=== PATIENT | male | born 1945 | race Caucasian/White ===

== ENCOUNTER → 2020-10-13 10:07 | Outpatient (BNVA) | payer MEDICARE, OTHER, SELFPAY | PROVIDERS: PCP Internal Medicine; Visit Provider Urology | DX: R35.1 Nocturia (principal); R39.14 Feeling of incomplete bladder emptying; N52.9 Male erectile dysfunction, unspecified; N40.1 Benign prostatic hyperplasia with lower urinary tract symptoms | CPT/HCPCS: 51798; 99212 ==

== ENCOUNTER → 2020-11-07 11:06 | Outpatient (BNVA) | payer MEDICARE, OTHER, SELFPAY | PROVIDERS: PCP Internal Medicine; Visit Provider Urology | DX: R35.1 Nocturia (principal); R39.14 Feeling of incomplete bladder emptying; R39.12 Poor urinary stream; N52.9 Male erectile dysfunction, unspecified | CPT/HCPCS: 52000; 99212 ==

== ENCOUNTER → 2021-02-27 11:09 | Outpatient (BNVA) | payer MEDICARE, OTHER, SELFPAY | PROVIDERS: PCP Internal Medicine; Visit Provider Urology | DX: N40.1 Benign prostatic hyperplasia with lower urinary tract symptoms (principal); N52.9 Male erectile dysfunction, unspecified; R39.12 Poor urinary stream | CPT/HCPCS: 51798; 99212 ==

== ENCOUNTER 2021-04-09 09:42 | Day surgery (SDC) | payer MEDICARE, OTHER, SELFPAY ==
--- NOTE | 2021-04-06 12:15 | P.CONAN_ITS ---
Documented by User: Karina Siddiqi NP 04/06/21 12:21 HPI - Anesthesia Eval Consult details Narrative: 76yo M for Laser Ablation Prostate w/Green Light Cardiac cleared PMFSH Active Problems Active Problems: All Active Problems (Updated 11/07/20 @ 11:54 by El Hernandez MD) Weak urinary stream (Acute) Nocturia (Acute) Feeling of incomplete bladder emptying (Acute) Erectile dysfunction (Acute) Benign prostatic hyperplasia with lower urinary tract symptoms (Acute) Past Medical History Medical History (Updated 04/09/21 @ 09:51 by Susan Roland RN) Benign prostatic hyperplasia with lower urinary tract symptoms CAD (coronary artery disease) Erectile dysfunction Feeling of incomplete bladder emptying HTN (hypertension) Hyperlipidemia Nocturia ANEUDY (obstructive sleep apnea) Weak urinary stream Surgical History Surgical History (Updated 04/09/21 @ 09:52 by Susan Roland RN) History of surgery Hx of Achilles tendon repair Hx of arthroscopy of left knee Hx of colonoscopy Social History Social History Patient Tobacco Use Status: Never used Tobacco Use of substances other than those prescribed or required for medical reasons: No Are you DNR?: No Advance Directives: No Advance Directives Information Provided: Yes Meds Allergies Allergy/AdvReac Type Severity Reaction Status Date / Time No Known Allergies Allergy Verified 04/09/21 09:50 Home Medications Medication Instructions Recorded Confirmed Last Taken Type atorvastatin 80 mg tablet 80 mg PO DAILY 10/13/20 Unknown History hydrochlorothiazide 12.5 mg capsule 12.5 mg PO DAILY 10/13/20 Unknown History isosorbide mononitrate 30 mg 30 mg PO QPM 10/13/20 Unknown History tablet,extended release 24 hr losartan 50 mg tablet 50 mg PO DAILY 10/13/20 Unknown History aspirin 81 mg tablet 81 mg PO BEDTIME 04/09/21 04/09/21 Unknown History omeprazole 20 mg capsule,delayed 20 mg PO DAILY PRN 04/09/21 04/09/21 Unknown History release Exam Exam Date and Time: April 06, 2021 1215 Pertinent Lab Results Pertinent Lab Results: CBC and BMP WNL (outside facility) Narrative Narrative: Per cardiac clearance note 03/2021: EKG: SB Stress ECHO 05/2019: no evidence of ishemia at high work load; LVEF 60-65%, no RWMA, Trace MR Assessment and Plan Assessment Anesthesia Assessment: Chart Reviewed Documented by User: Romi Coleman MD 04/09/21 10:37 [facility] Past Medical History Medical History (Updated 04/09/21 @ 09:51 by Susan Roland RN) Benign prostatic hyperplasia with lower urinary tract symptoms CAD (coronary artery disease) Erectile dysfunction Feeling of incomplete bladder emptying HTN (hypertension) Hyperlipidemia Nocturia ANEUDY (obstructive sleep apnea) Weak urinary stream Family History Family history of problems with anesthesia: No Surgical History Surgical History (Updated 04/09/21 @ 09:52 by Susan Roland RN) History of surgery Hx of Achilles tendon repair Hx of arthroscopy of left knee Hx of colonoscopy History of Problems with Anesthesia: No Social History Social History Patient Tobacco Use Status: Never used Tobacco Use of substances other than those prescribed or required for medical reasons: No Are you DNR?: No Advance Directives: No Advance Directives Information Provided: Yes Meds Allergies Allergy/AdvReac Type Severity Reaction Status Date / Time No Known Allergies Allergy Verified 04/09/21 09:50 Home Medications Medication Instructions Recorded Confirmed Last Taken Type atorvastatin 80 mg tablet 80 mg PO DAILY 10/13/20 Unknown History hydrochlorothiazide 12.5 mg capsule 12.5 mg PO DAILY 10/13/20 Unknown History isosorbide mononitrate 30 mg 30 mg PO QPM 10/13/20 Unknown History tablet,extended release 24 hr losartan 50 mg tablet 50 mg PO DAILY 10/13/20 Unknown History aspirin 81 mg tablet 81 mg PO BEDTIME 04/09/21 04/09/21 Unknown History omeprazole 20 mg capsule,delayed 20 mg PO DAILY PRN 04/09/21 04/09/21 Unknown History release Exam Airway Mallampati Class: II TM Dist: >3cm Neck ROM: Full Heart: rrr Lungs: cta Assessment and Plan Assessment Anesthesia Assessment: Anesthesia Plan Discussed and Chart Reviewed Final Anesthetic Review Family History of Problems with Anesthesia: No History of Problems with Anesthesia: No NPO: Yes ASA Class: III Final Preanesthetic Review: No Changes in Pt Med Stat, Meds/Allgs Chart Reviewed and Consent Obtained/Reviewed Patient Risk: Intermediate Procedure Risk: Intermediate Anesthetic Plan Anesthetic Plan: GA Disposition: Standard PACU
[2021-04-09] VITALS (8 sets, daily range): BP systolic 110–160; BP diastolic 49–77; PULSE 48–54; RESP 16–17; TEMP 36.2–36.5; O2SAT 96–99; BMI 28.7
[2021-04-09] MEDS: Lactated Ringers 1,000 ML 100 ML IVCONT (10:18)
--- NOTE | 2021-04-09 11:39 | MHC.SHP ---
Pre-Procedural Eval Section A Date of Service: 04/09/21 The patient is an INPATIENT: No Changes since office visit: Yes Cold of Flu in the past 2 weeks, Yes New Medical Problems, Yes Changes in Medication and Yes Patient answered all questions The History & Physical has been completed within 30 days and I have reviewed it.: Yes Section B Chief Complaint: BPH Relevant Family History (Specify if Yes): No Relevant Social History: None Present Medications: see Short Stay Collaborative assessment Medical History: No relevant PMH History of Previous Operations: Relevant previous surgery/procedure and date(s) Allergies: Allergies Allergy/AdvReac Type Severity Reaction Status Date / Time No Known Allergies Allergy Verified 04/09/21 09:50 Review of Systems Sugical H&P ROS: Negative: Constitution, Cardiovascular, Respiratory, Neurological, Psychiatric, Hem-Onc, Allergic/Immunologic, Gastrointestinal, Genitourinary, Musculoskeletal, Integumentary, Endocrine and Eyes/Ears/Nose/Throat Exam Surgical H&P Exam: Normal: HEENT, Normal: Heart, Normal: Lungs, Normal: Extremities, Normal: Abdomen, Normal: Skin and Normal: Neurological Plan Diagnosis/Plan: Unchanged (greenlight laser prostatectomy) I have reviewed the history and physical and performed a pertinent physical examination on my patient. No changes have occurred unless specified.
--- NOTE | 2021-04-09 12:38 | W.PM.OPN ---
Operative Note Operative Note Date of Service: 04/09/21 Narrative: PreOperative Diagnosis: Bladder outlet obstruction Post Operative Diagnosis: Bladder outlet obstruction Procedure: GreenLight laser ablation of the prostate Surgeon: Dr El Hernandez Anesthesia: General Indications for procedure: History of bladder outlet obstruction. Treated with alpha-sommer and other medications. Still with symptoms. On cystoscopy in office has tight bladder neck. Recommendation for prostate procedure with laser enucleation of prostate. It has been discussed. Focus was placed on development of retrograde examination which is a normal part of this procedure. Procedure: After informed consent was verified the patient was brought to the operating room and placed in a supine position. Anesthesia was administered per protocol. Patient was placed in modified dorsal lithotomy position and prepped and draped in a sterile fashion. Safety pause time-out was confirmed. Antibiotics have been given. Twenty-four Indonesian laser cystoscope was inserted per urethra. No abnormalities found the anterior posterior urethra. The bladder was filled on both ureteric orifices were seen in normal position away from our area of interest. The bladder itself did have some areas which had glomerulation suggestive of an IC type picture may be contributing to urgency and frequency based on the relatively small prostate at the time of examination a decision was made to proceed with prostate incision with median lobe ablation and minimal lateral lobe work Using a GreenLight laser settings of 80 w incisions were made at the 5 and 7 o'clock position. They were taken down and then laterally on each side. They were brought from the bladder neck down to the level of the veru. In this situation the bladder neck to veru distance was relatively short. defined the lateral aspects of the median lobe area. The median lobe was ablated and intervening tissue between the 2 incisions were was removed. At the focus of these incisions and removal of the median lobe there stones within the prostate consistent with a small prostate and a close surgical capsule. When this was completed debris and pieces of prostate removed from the bladder. Both ureteric orifices were reviewed again in shown to be patent in away from any areas of energy damage. The apical area was reviewed in any stray ooze was controlled. A 22 Indonesian 30 cc balloon Harding catheter was placed over stylet into the bladder. Clear efflux was obtained. 30 cc was placed in the balloon and gentle traction was placed. A snap was used to hold tension once the patient will be moved and transported. Once transportation its finish this novel be removed. A belladonna and opiate suppository was placed for postprocedure pain management. He tolerated procedure well was extubated in the operating and transferred in a stable condition to the recovery area. Total power 8900 kilojoules, lase time 7 minutes. Pathology: Prostate tissue Drains: Harding catheter
[2021-04-09] MEDS: Acetaminophen 325 MG TABLET 650 MG PO (12:57)
== END 2021-04-09 14:42 | disposition home or self-care (01) ==
PROVIDERS: PCP Internal Medicine; Visit Provider Urology
PROC: (CPT 52648; principal; 2021-04-09 11:30)
DX: N40.1 Benign prostatic hyperplasia with lower urinary tract symptoms (principal); R39.14 Feeling of incomplete bladder emptying; N13.8 Other obstructive and reflux uropathy; R39.12 Poor urinary stream; R35.1 Nocturia; N52.9 Male erectile dysfunction, unspecified; I10 Essential (primary) hypertension; E78.5 Hyperlipidemia, unspecified
CPT/HCPCS: 52649; J1956; J2405; J3010

== ENCOUNTER → 2021-04-11 15:01 | Outpatient (BNVA) | payer MEDICARE, OTHER, SELFPAY | PROVIDERS: PCP Internal Medicine; Visit Provider Urology | DX: R39.14 Feeling of incomplete bladder emptying (principal) | CPT/HCPCS: 51700; 51798 ==

== ENCOUNTER → 2021-05-24 08:38 | Outpatient (BNVA) | payer MEDICARE, OTHER, SELFPAY | PROVIDERS: PCP Internal Medicine; Visit Provider Urology | DX: Z48.816 Encounter for surgical aftercare following surgery on the genitourinary system (principal); N30.10 Interstitial cystitis (chronic) without hematuria | CPT/HCPCS: 99212 ==

== ENCOUNTER → 2021-12-04 08:35 | Outpatient (BNVA) | payer MEDICARE, OTHER, SELFPAY | PROVIDERS: PCP Internal Medicine; Visit Provider Urology | DX: N30.10 Interstitial cystitis (chronic) without hematuria (principal); N40.1 Benign prostatic hyperplasia with lower urinary tract symptoms; R39.15 Urgency of urination; R39.12 Poor urinary stream | CPT/HCPCS: 51798; 99212 ==

== ENCOUNTER 2022-12-06 08:35 | Outpatient (AMB) | payer MEDICARE, OTHER, SELFPAY ==
--- NOTE | 2022-12-06 08:40 | A.OFFVIS_ITS ---
Intake Intake Visit Reasons: 1Y PVR Intake Note: Patient is present for Follow Up PVR Urology Med: Doxazosin, Solifenacin, Antibiotic Allergy:none Blood Thinner: Aspirin [facility]acy: [facility] PVR: 50ML Allergies No Known Allergies Allergy (Verified 12/06/22 08:41) Medication List - Last Reconciled 12/06/22 by El Hernandez MD aspirin 81 mg PO BEDTIME atorvastatin 80 mg PO DAILY doxazosin 4 mg PO BEDTIME 90 days hydrochlorothiazide 12.5 mg PO DAILY hydrochlorothiazide 12.5 mg PO DAILY isosorbide mononitrate ER 30 mg PO QPM losartan 50 mg PO DAILY omeprazole 20 mg PO DAILY PRN solifenacin 5 mg PO DAILY 90 days sulfamethoxazole-trimethoprim 400-80 mg (Bactrim) 1 tab PO DAILY tramadol 50 mg PO Q6H PRN HPI HPI Comments History of Present Illness Details Tra Felix is a very pleasant male. He is a patient of Dr Segundo. He is seen for the following urologic conditions. - LUTS - male interstitial cystitis Prior cystoscopy with glomerulation in bladder consistent with early male IC type picture PVR today 50 cc Nocturia 1-2 Good control during day Continues to respond current medications Lower Urinary Tract Symptoms: Current visit is for further evaluation of, lower urinary tract symptoms, predominate obstructive symptoms. Current treatment includes medication, alpha sommer, 5-AR - doxazosin and solifenacin Prostate Symptom Score 10/19 , Moderate (9-19), Bother 2. Symptoms include 10/19 , incomplete emptying, weak stream, and are progressing. Prior Prostate Score unknown. Cystoscopy - 11/22 median bar, 04/24 prostate procedure GreenLight - glomerulation Prostate volume 30-50gm. Testing at next visit will include PVR PFSH Medical History Benign prostatic hyperplasia with lower urinary tract symptoms CAD (coronary artery disease) Erectile dysfunction Feeling of incomplete bladder emptying HTN (hypertension) Hyperlipidemia Nocturia ANEUDY (obstructive sleep apnea) Weak urinary stream Surgical History History of surgery Hx of Achilles tendon repair Hx of arthroscopy of left knee Hx of colonoscopy Social History Patient Tobacco Use Status: Never used Tobacco Review of Systems Const Denies chills and Denies fever(s) Card Reports no additional complaints and Denies syncope Resp Denies cough GI Denies abdominal pain and Denies heartburn Reports as per HPI and Denies change in libido Neuro Denies syncope Psych Denies change in libido Endo Denies change in libido Physical Exam Const General: cooperative, healthy appearing, comfortable and no acute distress Orientation/consciousness: patient oriented x3 HEENT Face and sinus: Yes normal facial exam Mouth: moist mucous membranes Neck Neck: Yes normal visual inspection, Yes full ROM and Yes trachea midline Chest Chest palpation & inspection: normal inspection of the chest Resp Effort & Inspection: normal respiratory effort, able to speak in complete sentences and no respiratory distress GI Inspection: Yes normal to inspection Back/Spine/Pelvis Cervical Spine: normal cervical lordosis Thoracic/Lumbar Spine: thoracic and lumbar spine normal to inspection Skin General skin exam: no rashes or lesions noted Neuro General: patient oriented x3, gait normal, tone normal and moves all extremities Extrem General: Yes normal to inspection and Yes capillary refill normal Office Procedures Post Void Residual Post Residual Void Post Void Residual (PVR): 50 [id number] Void Residual by ultrasound Results AMB Urinalysis, Automated UA Leukoctes 0 Ebony/uL Last Edit by JAKY Arshad on 12/06/22 08:49 UA Nitrite Negative Last Edit by JAKY Arshad on 12/06/22 08:49 UA Urobilinogen 0.2 mg/dL Last Edit by JAKY Arshad on 12/06/22 08:4 9 UA Protein 0 mg/dL Last Edit by JAKY Arshad on 12/06/22 08:49 UA pH 6.0 Last Edit by JAKY Arshad on 12/06/22 08:49 UA Blood 0 Albert/uL Last Edit by JAKY Arshad on 12/06/22 08:49 UA Specific [place] 1.015 Last Edit by JAKY Arshad on 12/06/22 08: 49 UA Ketone Negative Last Edit by JAKY Arshad on 12/06/22 08:49 UA Bilirubin 0 mg/dL Last Edit by JAKY Arshad on 12/06/22 08:49 UA Glucose 0 mg/dL Last Edit by JAKY Arshad on 12/06/22 08:49 Results Reviewed Results Reviewed: Laboratory Last Values Urine pH (Auto) 6.0 12/06/22 08:42 Specific [place] (Auto) 1.015 12/06/22 08:42 Urine Protein (Auto) 0 mg/dL 12/06/22 08:42 Glucose (UA)(Auto) 0 mg/dL 12/06/22 08:42 Urine Ketones (Auto) Negative 12/06/22 08:42 Urine Blood (Auto) 0 Albert/uL 12/06/22 08:42 Urine Nitrite (Auto) Negative 12/06/22 08:42 Urine Bilirubin (Auto) 0 mg/dL 12/06/22 08:42 Urine Urobilinogen (Auto) 0.2 mg/dL 12/06/22 08:42 Leukocyte Esterase (Auto) 0 Ebony/uL 12/06/22 08:42 Assessment & Plan Assessment & Plan (1) Interstitial cystitis: Code(s): N30.10 - Interstitial cystitis (chronic) without hematuria (2) Urinary urgency: Code(s): R39.15 - Urgency of urination (3) Nocturia: Code(s): R35.1 - Nocturia Plan 12 month follow-up Orders: Orders AMB Urinalysis Automated Today Z13.9 - Encounter for screening, unspecified AMB Post Void Residual by ultrasound Today N40.1 - Benign prostatic hyperplasia with lower urinary tract symptoms Medications: Refilled solifenacin 5 mg PO DAILY 90 tabs 3RF 90 days R39.15 - Urgency of urination doxazosin 4 mg PO BEDTIME 90 tabs 3RF 90 days Patient Instructions: Imaging studies, laboratory and physical exam results were discussed and reviewed in detail. No major barriers to patient understanding were identified. An opportunity to ask questions regarding the treatment plan was provided. All questions were answered. The patient expressed understanding and agreement with the above treatment plan. The patient is aware they should contact our office by phone for worsening of their current condition or the appearance of new urologic symptoms. Compliance is encouraged with any medications and followup testing that is ordered. It is a privilege to participate in the urologic care of your patient. If you have any questions or concerns regarding treatment for the above conditions, or other urologic issues, please do not hesitate to contact me. The office telephone contact is [phone]. This note is constructed using voice recognition software. While every effort has been made to ensure accuracy medical case manager errors may have been included. Yours sincerely, Dr El Hernandez MD, [facility] - Urology Providers of Expert, Compassionate Care for the Genitourinary System Coding Level of Care Code Est Pt Level 4 (20208) Diagnoses Interstitial cystitis N30.10 Urinary urgency R39.15 Nocturia R35.1 CPT Codes Post Residual Void - PVR CPT Code: 44385-Fgvh Void Residual by ultrasound ([id number])
== END 2022-12-06 09:21 | disposition home or self-care (01) ==
PROVIDERS: Visit Provider Urology
DX: N30.10 Interstitial cystitis (chronic) without hematuria (principal); R39.15 Urgency of urination; R35.1 Nocturia
CPT/HCPCS: 99214

== ENCOUNTER → 2022-12-06 08:35 | Outpatient (BNVA) | payer MEDICARE, OTHER, SELFPAY | PROVIDERS: Visit Provider Urology | DX: N30.10 Interstitial cystitis (chronic) without hematuria (principal); R39.15 Urgency of urination; R35.1 Nocturia | CPT/HCPCS: 51798; 99212 ==

== ENCOUNTER 2024-01-01 10:09 | Outpatient (AMB) | payer MEDICARE, OTHER, SELFPAY ==
--- NOTE | 2024-01-01 10:46 | MHC.OFFVIS ---
Intake Visit Reasons: 1Y PVR Intake Note: Patient is Present for PVR Urology Med: Doxazosin, Vesicare Antibiotic Allergy: None Blood Thinner: Aspirin Last PVR: 50 Todays PVR: 20ml Patient states his PCP D/c doxazosin due to side effects Still currently on Vesicare [employer] Career Manager Required: No Accompanied by: Self / Same As Patient Allergies No Known Allergies Allergy (Verified 01/01/24 10:51) HPI Comments Details: Tra Felix is a very pleasant male. He is a patient of Dr Segundo. He is seen for the following urologic conditions. - LUTS - male interstitial cystitis Yearly follow-up Stopped doxazosin secondary to dizziness Has noticed weakness of stream with bladder instability Trial of alfuzosin Had been using omeprazole on demand for GI reflux Suggest trial of famotidine - famotidine also has positive impact on interstitial cystitis bladder Prior cystoscopy with glomerulation in bladder consistent with early male IC type picture Lower Urinary Tract Symptoms: Current visit is for further evaluation of, lower urinary tract symptoms, predominate obstructive symptoms. Current treatment includes medication, alpha sommer, 5-AR - doxazosin and solifenacin Prostate Symptom Score 10/19 , Moderate (9-19), Bother 2. Symptoms include 10/19 , incomplete emptying, weak stream, and are progressing. Prior Prostate Score unknown. Cystoscopy - 11/22 median bar, 04/24 prostate procedure GreenLight - glomerulation Prostate volume 30-50gm. Testing at next visit will include PVR PFSH Medical History ANEUDY (obstructive sleep apnea) CAD (coronary artery disease) Erectile dysfunction HTN (hypertension) Hyperlipidemia Weak urinary stream Nocturia Benign prostatic hyperplasia with lower urinary tract symptoms Feeling of incomplete bladder emptying Surgical History Hx of arthroscopy of left knee Hx of Achilles tendon repair Hx of colonoscopy History of surgery Social History Patient Tobacco Use Status: Never used Tobacco Review of Systems Const Denies chills and Denies fever(s) Card Reports no additional complaints and Denies syncope Resp Denies cough GI Denies abdominal pain and Denies heartburn Reports as per HPI and Denies change in libido Neuro Denies syncope Psych Denies change in libido Endo Denies change in libido Physical Exam Const General: cooperative, healthy appearing, comfortable and no acute distress Orientation/consciousness: patient oriented x3 HEENT Face and sinus: Yes normal facial exam Mouth: moist mucous membranes Neck Neck: Yes normal visual inspection, Yes full ROM and Yes trachea midline Chest Chest palpation & inspection: normal inspection of the chest Resp Effort & Inspection: normal respiratory effort, able to speak in complete sentences and no respiratory distress GI Inspection: Yes normal to inspection Back/Spine/Pelvis Cervical Spine: normal cervical lordosis Thoracic/Lumbar Spine: thoracic and lumbar spine normal to inspection Skin General skin exam: no rashes or lesions noted Neuro General: patient oriented x3, gait normal, tone normal and moves all extremities Extrem General: Yes normal to inspection and Yes capillary refill normal Office Procedures Post Void Residual Post Residual Void Post Void Residual (PVR): 20 [id number] Void Residual by ultrasound Assessment & Plan Assessment & Plan (1) Interstitial cystitis: Code(s): N30.10 - Interstitial cystitis (chronic) without hematuria Category: Medical (2) Urinary urgency: Code(s): R39.15 - Urgency of urination Category: Medical Plan Two month follow-up tele Orders: Orders AMB Post Void Residual by ultrasound Today R39.15 - Urgency of urination Medications: New famotidine 40 mg PO ONCE 30 days PRN 30 tabs 0RF GI Reflux N30.10 - Interstitial cystitis (chronic) without hematuria alfuzosin ER Take before bedtime 10 mg PO BEDTIME 30 days 30 tabs 1RF N30.10 - Interstitial cystitis (chronic) without hematuria, N32.0 - Bladder-neck obstruction, N40.1 - Benign prostatic hyperplasia with lower urinary tract symptoms, R33.9 - Retention of urine, unspecified, R35.1 - Nocturia, R39.12 - Poor urinary stream Refilled solifenacin 5 mg PO DAILY 90 days 90 tabs 3RF R39.15 - Urgency of urination Discontinued doxazosin Discontinued Reason: Patient Completed Course 4 mg PO BEDTIME 90 days 90 tabs 3RF Patient Instructions: Imaging studies, laboratory and physical exam results were discussed and reviewed in detail. No major barriers to patient understanding were identified. An opportunity to ask questions regarding the treatment plan was provided. All questions were answered. The patient expressed understanding and agreement with the above treatment plan. The patient is aware they should contact our office by phone for worsening of their current condition or the appearance of new urologic symptoms. Compliance is encouraged with any medications and followup testing that is ordered. It is a privilege to participate in the urologic care of your patient. If you have any questions or concerns regarding treatment for the above conditions, or other urologic issues, please do not hesitate to contact me. The office telephone contact is [phone]. This note is constructed using voice recognition software. While every effort has been made to ensure accuracy vending supervisor errors may have been included. Yours sincerely, Dr El Hernandez MD, [facility] - Urology Providers of Expert, Compassionate Care for the Genitourinary System Coding Level of Care Code Est Pt Level 4 (18331) Diagnoses Interstitial cystitis N30.10 Urinary urgency R39.15 CPT Codes Post Residual Void - PVR CPT Code: 71593-Gddw Void Residual by ultrasound ([id number])
== END 2024-01-01 11:19 | disposition home or self-care (01) ==
PROVIDERS: PCP Internal Medicine; Visit Provider Urology
DX: N30.10 Interstitial cystitis (chronic) without hematuria (principal); R39.15 Urgency of urination
CPT/HCPCS: 99214

== ENCOUNTER → 2024-01-01 10:09 | Outpatient (BNVA) | payer MEDICARE, OTHER, SELFPAY | PROVIDERS: PCP Internal Medicine; Visit Provider Urology | DX: N30.10 Interstitial cystitis (chronic) without hematuria (principal); R39.15 Urgency of urination | CPT/HCPCS: 51798; 99212 ==

== ENCOUNTER 2024-03-02 15:08 | Outpatient (AMB) | payer MEDICARE, OTHER, SELFPAY ==
--- NOTE | 2024-03-02 15:09 | A.OFFVIS_ITS ---
Intake Visit Reasons: 2M Med Review(Alfuzosin) Intake Note: Patient is present for Telephone Med Review Urology Medication: Alfuzosin, famotidine, Solifenacin Antibiotic Allergy:None Blood Thinner: Aspirin Last PVR: 20ml Joinery Machinist Required: No Allergies No Known Allergies Allergy (Verified 03/02/24 15:09) HPI Comments Details: Tra Felix is a very pleasant male. He is a patient of Dr Segundo. He is seen for the following urologic conditions. - LUTS - male interstitial cystitis Telemedicine Evaluation 15 min Consultation [facility] Video Has been off alfuzosin Otherwise doing well Had been using omeprazole on demand for GI reflux Suggest trial of famotidine - famotidine also has positive impact on interstitial cystitis bladder - using every third Prior cystoscopy with glomerulation in bladder consistent with early male IC type picture Lower Urinary Tract Symptoms: Current visit is for further evaluation of, lower urinary tract symptoms, predominate obstructive symptoms. Current treatment includes medication, alpha sommer, 5-AR - doxazosin and solifenacin Prostate Symptom Score 10/19 , Moderate (9-19), Bother 2. Symptoms include 10/19 , incomplete emptying, weak stream, and are progressing. Prior Prostate Score unknown. Cystoscopy - 11/22 median bar, 04/24 prostate procedure GreenLight - glomerulation Prostate volume 30-50gm. Testing at next visit will include PVR PFSH Medical History ANEUDY (obstructive sleep apnea) CAD (coronary artery disease) Erectile dysfunction HTN (hypertension) Hyperlipidemia Weak urinary stream Nocturia Benign prostatic hyperplasia with lower urinary tract symptoms Feeling of incomplete bladder emptying Surgical History Hx of arthroscopy of left knee Hx of Achilles tendon repair Hx of colonoscopy History of surgery Social History Patient Tobacco Use Status: Never used Tobacco Review of Systems Const All systems reviewed & are unremarkable except as noted in HPI and below Reports no additional complaints Resp Reports no additional complaints GI Reports no additional complaints Reports as per HPI Musc Reports no additional complaints Physical Exam Telemedicine evaluation Appropriate responses Regular breathing rate and rhythm HEENT Head: Yes normal to inspection Ears: hearing grossly normal bilaterally Eyes General: appearance normal, both eyes and all related structures Neck Neck: Yes normal visual inspection Chest Chest palpation & inspection: normal inspection of the chest Resp Effort & Inspection: normal respiratory effort and able to speak in complete sentences Telehealth Telehealth Telehealth Platform: [email or web address] Location of provider rendering services: practice address Location of patient: address on file Patient Identification confirmed using: Name, : Yes Telehealth method: video Patient verbally consented to treatment: Yes Patient verbally consented to billing insurance company: Yes Patient informed of any privacy concerns related to visit: Yes Minutes spent on Phone/Video with Pt.: 15 Assessment & Plan Assessment & Plan (1) Interstitial cystitis: Code(s): N30.10 - Interstitial cystitis (chronic) without hematuria Category: Medical (2) Urinary urgency: Code(s): R39.15 - Urgency of urination Category: Medical (3) Nocturia: Code(s): R35.1 - Nocturia Category: Medical Plan Refill alfuzosin Continue famotidine Six-month follow-up Medications: Changed From alfuzosin ER Take before bedtime 10 mg PO BEDTIME 30 days 30 tabs 1RF N30.10 - Interstitial cystitis (chronic) without hematuria, R39.12 - Poor urinary stream, R35.1 - Nocturia To alfuzosin ER Take before bedtime 10 mg PO BEDTIME 90 tabs 1RF 90 days N30.10 - Interstitial cystitis (chronic) without hematuria, R39.12 - Poor urinary stream, R35.1 - Nocturia Refilled famotidine 40 mg PO DAILY PRN 30 tabs 6RF GI Reflux 30 days N30.10 - Interstitial cystitis (chronic) without hematuria Discontinued tramadol Discontinued Reason: Patient Completed Course 50 mg PO Q6H PRN 14 tabs 0RF pain (scale score 4-6) sulfamethoxazole-trimethoprim 400-80 mg Discontinued Reason: Patient Completed Course 1 tab PO DAILY 10 tabs 0RF Patient Instructions: Imaging studies, laboratory and physical exam results were discussed and reviewed in detail. No major barriers to patient understanding were identified. An opportunity to ask questions regarding the treatment plan was provided. All questions were answered. The patient expressed understanding and agreement with the above treatment plan. The patient is aware they should contact our office by phone for worsening of their current condition or the appearance of new urologic symptoms. Compliance is encouraged with any medications and followup testing that is ordered. It is a privilege to participate in the urologic care of your patient. If you have any questions or concerns regarding treatment for the above conditions, or other urologic issues, please do not hesitate to contact me. The office telephone contact is [phone]. This note is constructed using voice recognition software. While every effort has been made to ensure accuracy seafood technology specialist errors may have been included. Yours sincerely, Dr El Hernandez MD, [facility] - Urology Providers of Expert, Compassionate Care for the Genitourinary System Coding Level of Care Code Tele Est Pt Level 3 (27088) Diagnoses Interstitial cystitis N30.10 Urinary urgency R39.15 Nocturia R35.1
== END 2024-03-02 16:04 | disposition home or self-care (01) ==
LOC: HO.HUSH 15:08
PROVIDERS: PCP Internal Medicine; Visit Provider Urology
DX: N30.10 Interstitial cystitis (chronic) without hematuria (principal); R39.15 Urgency of urination; R35.1 Nocturia
CPT/HCPCS: 99213

== ENCOUNTER → 2024-03-02 15:08 | Outpatient (BNVA) | payer MEDICARE, OTHER, SELFPAY | PROVIDERS: PCP Internal Medicine; Visit Provider Urology ==

== ENCOUNTER 2024-09-30 09:50 | Outpatient (AMB) | payer MEDICARE, OTHER, SELFPAY ==
--- NOTE | 2024-09-30 09:54 | A.OFFVIS_ITS ---
Intake Visit Reasons: 6M follow up Intake Note: Patient is present for 6M F/U Urology Medication:ALFUZOSIN,SOLIFENACIN,FAMOTIDINE Antibiotic Allergy:NONE Blood Thinner:NONE Light Oil Operator Required: No Allergies No Known Allergies Allergy (Verified 09/30/24 09:57) HPI Comments Details: Tra Felix is a very pleasant male. He is a patient of Dr Segundo. He is seen for the following urologic conditions. - lower urinary tract symptoms - male interstitial cystitis Six-month follow-up Current medications include solifenacin Has stopped medications. Discussed dietary triggers Trial tadalafil for bladder stability Had been using omeprazole on demand for GI reflux Suggest trial of famotidine - famotidine also has positive impact on interstitial cystitis bladder - using every third Prior cystoscopy with glomerulation in bladder consistent with early male IC type picture Trial tadalafil for overactive bladder Lower Urinary Tract Symptoms: Current visit is for further evaluation of, lower urinary tract symptoms, predominate obstructive symptoms. Current treatment includes medication, alpha sommer, 5-AR - doxazosin and solifenacin Prostate Symptom Score 10/19 , Moderate (9-19), Bother 2. Symptoms include 10/19 , incomplete emptying, weak stream, and are progressing. Prior Prostate Score unknown. Cystoscopy - 11/22 median bar, 04/24 prostate procedure GreenLight - glomerulation Prostate volume 30-50gm. Testing at next visit will include PVR PFSH Medical History ANEUDY (obstructive sleep apnea) CAD (coronary artery disease) Erectile dysfunction HTN (hypertension) Hyperlipidemia Weak urinary stream Nocturia Benign prostatic hyperplasia with lower urinary tract symptoms Feeling of incomplete bladder emptying Surgical History Hx of arthroscopy of left knee Hx of Achilles tendon repair Hx of colonoscopy History of surgery Social History Patient Tobacco Use Status: Never used Tobacco Review of Systems Const Denies chills and Denies fever(s) Card Reports no additional complaints and Denies syncope Resp Denies cough GI Denies abdominal pain and Denies heartburn Reports as per HPI and Denies change in libido Neuro Denies syncope Psych Denies change in libido Endo Denies change in libido Physical Exam Const General: cooperative, healthy appearing, comfortable and no acute distress Orientation/consciousness: patient oriented x3 HEENT Face and sinus: Yes normal facial exam Mouth: moist mucous membranes Neck Neck: Yes normal visual inspection, Yes full ROM and Yes trachea midline Chest Chest palpation & inspection: normal inspection of the chest Resp Effort & Inspection: normal respiratory effort, able to speak in complete sentences and no respiratory distress GI Inspection: Yes normal to inspection Back/Spine/Pelvis Cervical Spine: normal cervical lordosis Thoracic/Lumbar Spine: thoracic and lumbar spine normal to inspection Skin General skin exam: no rashes or lesions noted Neuro General: patient oriented x3, gait normal, tone normal and moves all extremities Extrem General: Yes normal to inspection and Yes capillary refill normal Results AMB Urinalysis, Automated UA Leukoctes 0 Ebony/uL Last Edit by SIMONA Castle on 09/30/24 16:04 UA Nitrite Negative Last Edit by SIMONA Castle on 09/30/24 16:04 UA Urobilinogen 0.2 mg/dL Last Edit by SIMONA Castle on 09/30/24 16:0 4 UA Protein 15 mg/dL Last Edit by SIMONA Castle on 09/30/24 16:04 UA pH 7.0 Last Edit by SIMONA Castle on 09/30/24 16:04 UA Blood 0 Albert/uL Last Edit by SIMONA Castle on 09/30/24 16:04 UA Specific [place] 1.010 Last Edit by SIMONA Castle on 09/30/24 16: 04 UA Ketone Negative Last Edit by SIMONA Castle on 09/30/24 16:04 UA Bilirubin 0 mg/dL Last Edit by SIMONA Castle on 09/30/24 16:04 UA Glucose 0 mg/dL Last Edit by SIMONA Castle on 09/30/24 16:04 Assessment & Plan Assessment & Plan (1) Interstitial cystitis: Code(s): N30.10 - Interstitial cystitis (chronic) without hematuria Category: Medical Plan Trial tadalafil Orders: Orders AMB Urinalysis Automated Today Z13.9 - Encounter for screening, unspecified Medications: New tadalafil 5 mg PO DAILY 90 tabs 0RF sexual activity 90 days N30.10 - Interstitial cystitis (chronic) without hematuria Patient Instructions: This note is constructed using voice recognition software. While every effort has been made to ensure accuracy material requirements planning manager errors may have been included. Imaging studies, laboratory and physical exam results were discussed and reviewed in detail. No major barriers to patient understanding were identified. An opportunity to ask questions regarding the treatment plan was provided. All questions were answered. The patient expressed understanding and agreement with the above treatment plan. The patient is aware they should contact our office by phone for worsening of their current condition or the appearance of new urologic symptoms. Compliance is encouraged with any medications and followup testing that is ordered. It is a privilege to participate in the urologic care of your patient. If you have any questions or concerns regarding treatment for the above conditions, or other urologic issues, please do not hesitate to contact me. The office telephone contact is [phone]. Sincerely, Dr El Hernandez MD, [facility] - Urology Compassionate Specialist Care for the Genitourinary System Coding Level of Care Code Est Pt Level 4 (65214) Diagnoses Interstitial cystitis N30.10
--- OUTSIDE RECORDS SUMMARY | 2024-09-30 10:12 | XMS_ITS | Clinical Summary ---
Author Organization [facility] Address [address] [place] [address] Care Team Providers Care Chemical Maker Name Role Phone Armani Garber MD Primary Care Provider [phone] Allergies No known active allergies Medications Medication Sig Dispensed Refills Start Date End Date Status atorvastatin (LIPITOR) tablet 80 mg Take 80 mg by mouth every night at bedtime. 3 07/09/2018 Active doxazosin (CARDURA) 4 MG tablet 4 mg every night at bedtime. 0 12/22/2020 Active losartan (COZAAR) tablet 50 mg 50 mg daily. 0 01/17/2021 Active Glucosamine 500 MG CAPS daily. 0 03/29/2019 Active isosorbide mononitrate (IMDUR) 30 MG 24 hr tablet 30 mg. 0 03/26/2021 Active Omeprazole 20 MG TBDD daily. 0 03/29/2019 Active solifenacin (VESICARE) 5 MG tablet 5 mg daily. 0 06/05/2021 Active Azelastine HCl 137 MCG/SPRAY SOLN 2 (two) times a day. 0 01/31/2022 Active Zinc 50 MG CAPS Take by mouth daily. 0 Active Potassium Gluconate 595 (99 K) MG TABS Take by mouth. 0 Ac tive Camphor-Eucalyptus- Menthol (Vicks VapoRub) 4.7-1.2-2.6 % OINT Apply topically. Bilateral feet 0 Active aspirin EC 81 MG EC tablet Take 1 tablet (81 mg total) by mouth 2 (two) times a day after meals. 84 tablet 0 03/08/2022 Active methocarbamol (ROBAXIN) 750 MG tablet Take 1 tablet (750 mg total) by mouth every 6 (six) hours as needed. 45 tablet 0 03/08/2022 Active oxyCODONE (ROXICODONE) 5 MG immediate release tablet Take 1 tablet (5 mg total) by mouth every 4 (four) hours as needed. 42 tablet 0 03/08/2022 Active senna-docusate (PERICOLACE) 8.6-50 MG Take 1 tablet by mouth 2 (two) times a day. 20 tablet 0 03/08/2022 Active amoxicillin (AMOXIL) 500 MG tablet Take 4 tabs 1 hour prior to dental appointment 20 tablet 3 03/27/2022 Active Azelastine HCl 137 MCG/SPRAY SOLN spray or apply 1 spray inside Nose. 0 Active Active Problems Problem Noted Date Diagnosed Date Ascending aortic aneurysm 08/10/2021 Coronary artery disease 03/22/2021 Overview: Last Assessment & Plan: Patient has history of coronary artery disease status post CARO to the proximal LAD and balloon angioplasty to the diagonal branch in 2015. His last noninvasive cardiac testing was with a stress echocardiogram 05/2019 which showed no evidence of ischemia at a high workload. Patient feels well and denies any chest pain, palpitations, dyspnea, orthopnea, PND, syncope, near syncope or peripheral edema. He is not as active at this time due to knee pain however he is able to climb up and down stairs, playing racquetball and walks to the grocery store without developing any chest pain or significant dyspnea. He is on appropriate risk factor modifications with aspirin, isosorbide and statin. He is not on a beta-sommer due to baseline bradycardia. I have reviewed with the patient the importance of a heart healthy lifestyle which includes eating a low-fat low-salt diet, getting regular exercise, maintaining a healthy weight, not smoking, and following up with routine medical care. Hyperlipidemia 03/22/2021 Overview: Last Assessment & Plan: Patient's last LDL cholesterol is 71. Target is less than 70. Patient encouraged to follow a low-fat diet. He should continue on his present dose of atorvastatin 80 mg once a day. Hypertension 03/22/2021 Overview: Last Assessment & Plan: Blood pressure is well controlled with a reading today of 128/78. No changes to his present medical therapies. Obstructive sleep apnea 03/22/2021 Bursitis/tendonitis, shoulder 08/04/2018 Immunizations Name Administration Dates Next Due Covid-19 (Moderna 12+) 100mcg/0.5mL dosage 11/22/2021,12/21/2020,07/12/2020, 02 1 Family History Medical History Relation Name Comments No Sig Med Hx Brother 1 older No Sig Med Hx Brother 2 younger Dementia Father Heart disease Mother Relation Name Status Comments Brother 1 older Alive Brother 2 younger Alive Father (Age 83) Mother (Age 96) Social History Tobacco Use Types Packs/Day Years Used Date Smoking Tobacco: Never Smokeless Tobacco: Never Tobacco Cessation:Counseling Given: Not Answered Alcohol Use Standard Drinks/Week Comments Yes 14 (1 standard drink = 0.6 oz pu re alcohol) Sex and Gender Information Value Date Recorded Sex Assigned at Male 12/26/2021 3:40 PM EDT Gender Identity Male 12/26/2021 3:40 PM EDT Sexual Orientation Straight 03/07/2022 6: 24 AM EDT Job Start Date Occupation Industry Not on file Not on file Not on file Last Filed Vital Signs Vital Sign Reading Time Taken Comments Blood Pressure 118/63 03/08/2022 8:20 AM EDT Pulse 70 03/08/2022 8:20 AM EDT Temperature 36.7 ??C (98.1 ??F) 03/08/2022 8:20 AM ED T Respiratory Rate 16 03/08/2022 8:20 AM EDT Oxygen Saturation 95% 03/08/2022 8:20 AM EDT Inhaled Oxygen Concentration - - Weight 93.9 kg (207 lb) 03/07/2022 6:40 AM EDT Height 175.3 cm (5' 9 ) 03/07/2022 6:40 AM EDT Body Mass Index 30.57 03/07/2022 6:40 AM EDT Plan of Treatment Health Maintenance Due Date Last Done Comments Depression Screening 1957 BMI Counseling 01/13/1962 Preventative Health Evaluation 01/13/1962 DTap / Tdap / Td (1 - Tdap) 01/13/1963 Shingrix-Zoster Vaccine (1 of 2) 01/13/1994 Fall Risk Assessment 01/13/2009 Pneumococcal Vaccine (1 of 1 - PCV) 01/13/2009 RSV Adult > 60+ Yrs or (1 - 1-dose 75+ series) 01/13/2019 COVID-19 Vaccine ( season) 2024 11/22/2021, 12/21/2020, 07/12/2020, Additional history exists Influenza Vaccine (#1) 2024 Hepatitis B Vaccines Aged Out No long er eligible based on patient's age to complete this topic RSV Ped < 20 months Aged Out No longe r eligible based on patient's age to complete this topic Medical Devices Implanted Type Area Optical Systems Engineer Device Identifier Shelf Expiration Date Model / Serial / Lot Cement Bone Surg Simplex Radiopq Stry-Howm [id number] [id number] - [id number] Implanted:Qty: 1 on 03/07/2022 by Sawyer Orellana MD at [facility] [place] [facility] Left: Knee [employer] [id number] 04/03/2023 6191-1-010 / / [id number] Cement Bone Surg Simplex Radiopq Stry-How [id number] [id number] - [id number] Implanted:Qty: 1 on 03/07/2022 by Sawyer Orellana MD at [facility] Left: Knee [employer] [id number] 04/03/2023 6191-1-010 / / [id number] Knee Fem Ps Trthln Sz 6 Lt Stry-How [id number] - [id number] Implanted:Qty: 1 on 03/07/2022 by Sawyer Orellana MD at [facility] Left: Knee [employer] [id number] 02/01/2023 5515-F-601 / / [id number] Knee Baseplt Tib Cmnt Sz6 Stry-Howm [id number] 192 - [id number] Implanted:Qty: 1 on 03/07/2022 by Sawyer Orellana MD at [facility] Left: Knee [employer] [id number] 12/20/2026 5520-B-600 / / [id number] Knee Tib Insrt Ps-X3 [id number] Stry-Howm [id number] [id number] - [id number] Implanted:Qty: 1 on 03/07/2022 by Sawyer Orellana MD at [facility] Left: Knee [employer] [id number] 08/28/2025 5532-G-[id number] / / [id number] Peg Fix Femoral Distal Stry-Howm [id number] 704 - [id number] Implanted:Qty: 1 on 03/07/2022 by Sawyer Orellana MD at [facility] Left: Knee [employer] [id number] 01/10/2027 5575-X-000 / / [id number] Knee Pat Asymmetric X3 [id number] Stry-Howm [id number] - [id number] Implanted:Qty: 1 on 03/07/2022 by Sawyer Orellana MD at [facility] Left: Knee [employer] [id number] 07/30/2025 5551-G-320 -[id number] / / [id number] Advance Directives For more information, please contact: [phone] Latest Code Status on File Code Status Date Activated Date Inactivated Comments Full Code 03/07/2022 10:51 AM 03/08/2022 7:06 PM This code status was ascertained in the following way: per living will or healthcare instructions . Code Status History Code Status Date Activated Date Inactivated Comments Full Code 03/07/2022 6:18 AM 03/07/2022 10:51 AM This code status was ascertained in the following way: discussion with patient . Care Teams Chemical Maker Relationship Specialty Start Date End Date Armani Garber MD [address] [place] [id number] PCP - General Stone Rigger 03/20/18
== END 2024-09-30 10:43 | disposition home or self-care (01) ==
LOC: HO.HUSH 09:51
PROVIDERS: PCP Internal Medicine; Visit Provider Urology
DX: Z13.9 Encounter for screening, unspecified (principal); N30.10 Interstitial cystitis (chronic) without hematuria
CPT/HCPCS: 99214

== ENCOUNTER → 2024-09-30 09:50 | Outpatient (BNVA) | payer MEDICARE, OTHER, SELFPAY | PROVIDERS: PCP Internal Medicine; Visit Provider Urology | DX: N30.10 Interstitial cystitis (chronic) without hematuria (principal) | CPT/HCPCS: 81003; 99212 ==

== ENCOUNTER 2025-01-04 12:45 | Outpatient (AMB) | payer MEDICARE, OTHER, SELFPAY ==
--- NOTE | 2025-01-04 12:45 | MHC.OFFVIS ---
Intake Visit Reasons: 3m follow up Intake Note: Patient is present for 3M F/U Urology Medication:ALFUZOSIN,TADALAFIL Antibiotic Allergy:NONE Blood Thinner:NONE Customer Equipment Engineer Required: No Accompanied by: Self / Same As Patient Allergies No Known Allergies Allergy (Verified 01/04/25 12:49) HPI Comments Details: Tra Felix is a very pleasant male. He is a patient of Dr Segundo. He is seen for the following urologic conditions. - lower urinary tract symptoms - male interstitial cystitis Telemedicine Evaluation 15 min Consultation Oppex Yifan Video Follow-up three-month trial on tadalafil Has nocturia x3, during the day 4-5 Some improvement in control of urge Will continue Had been using omeprazole on demand for GI reflux Suggest trial of famotidine - famotidine also has positive impact on interstitial cystitis bladder - using every third Prior cystoscopy with glomerulation in bladder consistent with early male IC type picture Lower Urinary Tract Symptoms: Current visit is for further evaluation of, lower urinary tract symptoms, predominate obstructive symptoms. Current treatment includes medication, alpha sommer, 5-AR - doxazosin and solifenacin Prostate Symptom Score 10/19 , Moderate (9-19), Bother 2. Symptoms include 10/19 , incomplete emptying, weak stream, and are progressing. Prior Prostate Score unknown Cystoscopy - 11/22 median bar, 04/24 prostate procedure GreenLight - glomerulation Prostate volume 30-50gm. Testing at next visit will include PVR PFSH Medical History ANEUDY (obstructive sleep apnea) CAD (coronary artery disease) Erectile dysfunction HTN (hypertension) Hyperlipidemia Weak urinary stream Nocturia Benign prostatic hyperplasia with lower urinary tract symptoms Feeling of incomplete bladder emptying Surgical History Hx of arthroscopy of left knee Hx of Achilles tendon repair Hx of colonoscopy History of surgery Social History Patient Tobacco Use Status: Never used Tobacco Review of Systems Const All systems reviewed & are unremarkable except as noted in HPI and below Reports no additional complaints Resp Reports no additional complaints GI Reports no additional complaints Reports as per HPI Musc Reports no additional complaints Physical Exam Telemedicine evaluation Appropriate responses Regular breathing rate and rhythm HEENT Head: Yes normal to inspection Ears: hearing grossly normal bilaterally Eyes General: appearance normal, both eyes and all related structures Neck Neck: Yes normal visual inspection Chest Chest palpation & inspection: normal inspection of the chest Resp Effort & Inspection: normal respiratory effort and able to speak in complete sentences Telehealth Telehealth Telehealth Platform: [employer] Location of provider rendering services: practice address Location of patient: address on file Patient Identification confirmed using: Name, : Yes Telehealth method: video Patient verbally consented to treatment: Yes Patient verbally consented to billing insurance company: Yes Patient informed of any privacy concerns related to visit: Yes Assessment & Plan Assessment & Plan (1) Weak urinary stream: Code(s): R39.12 - Poor urinary stream Category: Medical (2) Interstitial cystitis: Code(s): N30.10 - Interstitial cystitis (chronic) without hematuria Category: Medical (3) Urinary urgency: Code(s): R39.15 - Urgency of urination Category: Medical Plan Six-month follow-up office PVR Medications: Refilled tadalafil 5 mg PO DAILY 90 tabs 1RF bladder stability 90 days N30.10 - Interstitial cystitis (chronic) without hematuria Patient Instructions: This note is constructed using voice recognition software. While every effort has been made to ensure accuracy jukebox route driver errors may have been included. Imaging studies, laboratory and physical exam results were discussed and reviewed in detail. No major barriers to patient understanding were identified. An opportunity to ask questions regarding the treatment plan was provided. All questions were answered. The patient expressed understanding and agreement with the above treatment plan. The patient is aware they should contact our office by phone for worsening of their current condition or the appearance of new urologic symptoms. Compliance is encouraged with any medications and followup testing that is ordered. It is a privilege to participate in the urologic care of your patient. If you have any questions or concerns regarding treatment for the above conditions, or other urologic issues, please do not hesitate to contact me. The office telephone contact is [phone]. Sincerely, Dr El Hernandez MD, [facility] - Urology Compassionate Specialist Care for the Genitourinary System Coding Level of Care Code Tele Est Pt Level 3 (23578) Complex EM visit Add On G2211 Diagnoses Weak urinary stream R39.12 Interstitial cystitis N30.10 Urinary urgency R39.15
--- OUTSIDE RECORDS SUMMARY | 2025-01-04 13:56 | XMS_ITS ---
Author Name [facility] Organization Unknown History of Medication Use Medication Directions Dispensed Refills Start Date End Date Stat us methocarbamol 750 mg tablet TAKE 1 TABLET BY MOUTH EVERY 6 HOURS NEEDED. 03/11/2023 active oxycodone 5 mg tablet TAKE 1 TABLET BY MOUTH EVERY 4 HOURS NEEDED. 03/11/2023 completed solifenacin 5 mg tablet TAKE 1 TABLET BY MOUTH EVERY DAY active Problems Problem Status Onset Date Problem Type Date of Resoluti on Source History of left total knee replacement active 2023-03-11 ProblemAct ENS_AONECT Encounters Encounter Type Encounter Reason Primary Diagnosis Location Date Ambulatory [facility] 04/18/2023 Ambulatory [facility] 03/11/2023 Ambulatory [facility] 11/24/2022 Ambulatory [facility] 10/22/2022 Ambulatory [facility] 10/22/2022 Ambulatory [facility] 07/26/2022 Care Team Organization Name Specialty Phone Email Start Date End Da te [facility] SHEYLA STEIN Primary Care 04/04/202212/21
--- OUTSIDE RECORDS SUMMARY | 2025-01-04 13:56 | XMS_ITS | Clinical Summary ---
Author Organization [facility] Address [address] [place] [address] Care Team Providers Care Virtual Assistant Name Role Phone Armani Garber MD Primary Care Provider [phone] Allergies No known active allergies Medications Medication [...] 70 03/08/2022 8:20 AM EDT Temperature 36.7 C (98.1 F) 03/08/2022 8:20 AM EDT Respiratory Rate 16 03/08/2022 8:20 AM EDT [...] 1-dose 75+ series) 01/13/2019 COVID-19 Vaccine ( - season) 2025 11/22/2021, 12/21/2020, 07/12/2020, Additional history exists Influenza Vaccine (#1) 2025 Hepatitis B Vaccines Aged Out No long er eligible based on patient's age to complete this topic RSV Ped < 20 months Aged Out No longe r eligible based on patient's age to complete this topic Medical Devices Implanted Type Area Account Representative Device Identifier Shelf Expiration Date Model / Serial / Lot Cement Bone Surg Simplex Radiopq Stry-Howm [id number] 092 - [id number] Implanted:Qty: 1 on 03/07/2022 by Sawyer Orellana MD at [facility] Left: Knee [employer] [id number] 04/03/2023 6191-1-010 / / [id number] Cement Bone Surg Simplex Radiopq Stry-How [id number] 092 - [id number] Implanted:Qty: 1 on 03/07/2022 by Sawyer Orellana MD at [facility] Left: Knee [employer] [id number] 04/03/2023 6191-1-010 / / [id number] Knee Fem Ps Trthln Sz 6 Lt Stry-How 4102-[id number] 741 - [id number] Implanted:Qty: 1 on 03/07/2022 by Sawyer Orellana MD at [facility] Left: Knee [employer] [id number] 02/01/2023 5515-F-601 / / [id number] Knee Baseplt Tib Cmnt Sz6 Stry-How 0253-C-[id number] 192 - [id number] Implanted:Qty: 1 on 03/07/2022 by Sawyer Orellana MD at [facility] Left: Knee [employer] [id number] 12/20/2026 5520-B-600 / / [id number] Knee Tib Insrt Ps-X3 [id number] Stry-Howm 2106-H-[id number] 754 - [id number] Implanted:Qty: 1 on 03/07/2022 by Sawyer Orelalna MD at [facility] Left: Knee [employer] [id number] 08/28/2025 5532-G-613 / / [id number] Peg Fix Femoral Distal Stry-Howm 9590-O-[id number] 704 - [id number] Implanted:Qty: 1 on 03/07/2022 by Sawyer Orellana MD at [facility] Left: Knee [employer] [id number] 01/10/2027 5575-X-000 / / [id number] Knee Pat Asymmetric X3 [id number] Stry-Howm 8318-X-[id number]-E-[id number] [id number] - [id number] Implanted:Qty: 1 on 03/07/2022 by Sawyer Orellana MD at [facility] Left: Knee [employer] [id number] 07/30/2025 5551-G-320 -E / / [id number] Advance Directives For more information, please contact: [phone] Latest Code Status on File Code Status [...] way: discussion with patient . Care Teams Virtual Assistant Relationship Specialty Start Date End Date Armani Garber MD [address] [place] [id number] PCP - General [place] Hardware Installer 03/20/18
--- OUTSIDE RECORDS SUMMARY | 2025-01-04 13:56 | XMS_ITS | Clinical Summary ---
Author Organization [facility] [employer] Address [address] [place] [address] Care Team Providers Care Ram Press Operator Name Role Phone Unavailable Primary Care Provider Unavailabl e Social History Tobacco Use Types Packs/Day Years Used Date Smoking Tobacco: Never Assessed Sex and Gender Information Value Date Recorded Sex Assigned at Not on file Legal Sex Male 2:43 PM EDT Gender Identity Not on file Sexual Orientation Not on file Plan of Treatment Health Maintenance Due Date Last Done Comments Depression: Screening Annual ly using PHQ-2/9 in Adults 18 yrs or above (or HM Modifier)([facility]) 01/13/1963 SDOH Screening Reminder: Lisbeth dawkins for all adults ([facility]) 01/13/1963 Tobacco Smoking Cessation: i n Adults excluding Women: Behavioral and Pharmacotherapy Interventions ([facility]) 01/13/1962 DTaP/Tdap/Td Vaccines ([facility]) (1 - Tdap) 01/13/1963 Pneumococcal Vaccination Scr eening: Patients 50+ yrs of age ([facility]) (1 of 1 - PCV) 01/13/1994 Zoster/Shingles Vaccine Seri es Screening: Adults aged 18+ yrs (or HM Modifiers)([facility]) (1 of 2) 01/13/1994 RSV Vaccines (1 - 1-dose 75+ series) 01/13/2019 COVID-19 Vaccine Screening: Initial Series and Booster Status ([facility]) ( - 2023- season) 2024 Flu Vaccination: Ages 65+: Y early High Dose Recommended (or Modifier)([facility]) 12/03/2024 Medical Devices Not on file Insurance MEDICARE
--- OUTSIDE RECORDS SUMMARY | 2025-01-04 13:56 | XMS_ITS | Clinical Summary ---
Author Organization [facility] [employer] Address [address] [address] Phone Care Team Providers Care Picc Nurse Name Role Phone Armani Segundo MD Primary Care Provider [phone] Allergies No known active allergies Medications omeprazole (PRILOSEC) 20 mg tablet,delayed release (DR/EC) Take 1 Tablet by mouth daily. Active losartan (COZAAR) 25 mg tablet Take 1 Tablet by mouth daily. 4 Active solifenacin (VESICARE) 5 mg tablet Take 2 Tablets by mouth daily. Active azelastine (ASTELIN) 137 mcg (0.1 %) nasal spray 1 [place] by Nasal route daily. Active doxazosin (CARDURA) 4 mg tablet daily. 1 Active POTASSIUM ORAL Potassium 99 MG Tab daily 9 Active aspirin 81 mg chewable tablet daily. 6 Active glucosamine sulfate (Glucosamine) 500 mg tablet daily. 9 Active atorvastatin (LIPITOR) 80 mg tablet TAKE 1 TABLET BY MOUTH EVERYDAY AT BEDTIME 90 tablet 3 5 Active isosorbide mononitrate (IMDUR) 30 mg 24 hr tablet TAKE 1 TABLET BY MOUTH EVERY DAY AT SUPPER TIME 90 tablet 3 5 Active Active Problems Problem Noted Date Diagnosed Date Ascending aortic aneurysm (CMS/HCC V24) 08/11/19 22 Overview (05/04/2024): Last Assessment & Plan: The patient has a history of a mild ascending aorta dilation. The ascending aorta measured 4.0 cm on the echocardiogram done in July 2021. Will order an echocardiogram to reevaluate his ascending aorta diameter. Assessment & Plan (07/02/2024 11:12 AM EST): Patient has a history of mild ascending aorta dilation. Previous echocardiograms dating back to 2021 showed an ascending aorta at 4.0 and his last echocardiogram in 2023 showed an ascending aorta at 4.1 cm. Will update a new echocardiogram to reevaluate for progression. Orders: Transthoracic echocardiogram (TTE) complete with PRN contrast, bubble, strain, and 3D order panel; Future Coronary artery disease 03/22/2021 Overview (05/04/2024): Last Assessment & Plan: The patient has a history of coronary artery disease. Currently, the patient denies any chest pain at rest or with exertion. The patient continues on secondary preventive therapy for CAD, including: Isosorbide mononitrate, atorvastatin, and aspirin. The patient is not on beta-sommer therapy due to his resting bradycardia. At this point, will continue his current therapy. Assessment & Plan (07/02/2024 11:12 AM EST): Patient has a history of coronary artery disease status post stent to the proximal LAD in 2016. Currently, he denies any exertional or anginal symptoms or episodes of chest pain. He has been feeling well from a cardiac standpoint. He continues on medical therapy with aspirin, statin, isosorbide mononitrate as prescribed. Orders: Comprehensive metabolic panel; Future Hyperlipidemia 03/22/2021 Overview (05/04/2024): Last Assessment & Plan: The patient has a history of hyperlipidemia. The patient is currently on atorvastatin 80 mg orally daily. We will order a new lipid panel to evaluate the patient's current lipid control and determine if any adjustment are needed in the lipid lowering therapy. Assessment & Plan (07/02/2024 11:12 AM EST): Last LDL June 2023 at goal. Will update a new fasting lipid panel to reassess his lipid control and make any adjustments as necessary. In the meantime, he will continue his current atorvastatin 80 mg orally daily. Orders: Lipid panel with reflex to direct LDL; Future Hypertension 03/22/2021 Overview (05/04/2024): Last Assessment & Plan: The patient has a history of arterial hypertension. The patient's blood pressure today was noted to be well controlled. We'll continue the current antihypertensive medication regimen. Assessment & Plan (07/02/2024 11:12 AM EST): Patient's blood pressure is well-controlled today with a reading 119/72. He will continue his current antihypertensive medication regimen as prescribed. Orders: Comprehensive metabolic panel; Future Obstructive sleep apnea 03/22/2021 Surgical History Surgery Date Site/Laterality Comments ANGIOPLASTY PROCEDURE: HISTORICAL ANGIOPLASTY W/STENT Medical History Medical History Date Comments Chronic ischemic heart disease D X:Chronic ischemic heart disease Hyperlipidemia DX:Hyperlipidemi a Essential hypertension DX:Essent ial hypertension Family History Medical History Relation Name Comments Angioplasty Brother 1 No Known Problems Brother 2 Dementia Father Coronary artery disease Mother Relation Name Status Comments Brother 1 Alive Brother 2 Alive Father Alive Mother Alive Social History Tobacco Use Types Packs/Day Years Used Date Smoking Tobacco: Never Smokeless Tobacco: Never Alcohol Use Standard Drinks/Week Comments Yes 0 (1 standard drink = 0.6 oz pur e alcohol) occ Sex and Gender Information Value Date Recorded Sex Assigned at Not on file Legal Sex Male 5:29 PM EST Gender Identity Not on file Sexual Orientation Not on file Obstetrics History Last Filed Vital Signs Vital Sign Reading Time Taken Comments Blood Pressure 122/76 09/13/2024 8:35 AM EDT Pulse 60 07/02/2024 10:29 AM EST Temperature - - Respiratory Rate - - Oxygen Saturation 99% 07/02/2024 10:29 AM EST Inhaled Oxygen Concentration - - Weight 96.2 kg (212 lb) 09/13/2024 8:35 AM EDT Height 175.3 cm (5' 9 ) 09/13/2024 8:35 AM EDT Body Mass Index 31.31 09/13/2024 8:35 AM EDT Plan of Treatment Health Maintenance Due Date Last Done Comments Zoster Vaccines (2 of 2) 01/11/2019 11/16/2018 Cholesterol Screening (Lipid Panel) 04/12/2022 Falls Risk Assessment 04/12/2022 Social Influencers of Health Screening 04/12/2022 Medicare Annual Wellness Visit 01/31/2023 01/31/2022 Hypertension/CHF/CAD Annual BMP Blood Test 03/08/2023 03/08/2022, 03/08/2022, 03/08/2022 Depression Screening 05/05/2024 Influenza Vaccine (#1) 2025 , 01/23/2023, 03/26/2022, Additional history exists DTaP,Tdap,and Td Vaccines (2 - Td or Tdap) 01/21/2034 01/22/2024 Pneumococcal Vaccine: 50+ Years Completed 04/08/2023, 11/22/2021 RSV Immunization Adult Patients Completed 04/08/2023 COVID-19 Vaccine Completed 08/22/2024, , 01/23/2023, Additional history exists HIB Vaccines Aged Out No longer eligi ble based on patient's age to complete this topic HPV Vaccines Aged Out No longer eligi ble based on patient's age to complete this topic Hepatitis A Vaccines Aged Out No long er eligible based on patient's age to complete this topic Hepatitis B Vaccines Aged Out No long er eligible based on patient's age to complete this topic IPV Vaccines Aged Out No longer eligi ble based on patient's age to complete this topic MMR Vaccines Aged Out No longer eligi ble based on patient's age to complete this topic Meningococcal ACWY Vaccine Aged Out N o longer eligible based on patient's age to complete this topic Meningococcal B Vaccine Aged Out No l onger eligible based on patient's age to complete this topic RSV Immunization Patients Under 20 months Aged Out No longer eligible based on patient's age to complete this topic Varicella Vaccines Aged Out No longer eligible based on patient's age to complete this topic Medical Devices Implanted Type Area Lumber Puller Device Identifier Shelf Expiration Date Model / Serial / Lot Cement Bone Surg Simplex Radiopq [facility] 8619-3-213-114 092 Implanted:Qty: 1 on 03/07/2022 by Sawyer Orellana MD Left: Knee [employer] [id number] 04/03/2023 6191-1-010 / / [id number] Cement Bone Surg Simplex Radiopq Stry-Howm [id number] 092 Implanted:Qty: 1 on 03/07/2022 by Sawyer Orellana MD Left: Knee [employer] [id number] 04/03/2023 6191-1-010 / / [id number] Knee Fem Ps Trthln Sz 6 Lt Stry-Howm [id number] [id number] Implanted:Qty: 1 on 03/07/2022 by Sawyer Orellana MD Left: Knee [employer] [id number] 02/01/2023 5515-F-601 / / [id number] Knee Baseplt Tib Cmnt Sz6 Stry-Howm [id number] Implanted:Qty: 1 on 03/07/2022 by Sawyer Orellana MD Left: Knee [employer] [id number] 12/20/2026 5520-B-600 / / [id number] Knee Tib Insrt Ps-X3 [id number] Stry-Howm [id number] Implanted:Qty: 1 on 03/07/2022 by Sawyer Orellana MD Left: Knee [employer] [id number] 08/28/2025 5532-G-613 / / [id number] Peg Fix Femoral Distal Stry-Howm [id number] Implanted:Qty: 1 on 03/07/2022 by Sawyer Orellana MD Left: Knee [employer] [id number] 01/10/2027 5575-X-000 / / [id number] Knee Pat Asymmetric X3 [id number] Stry-Howm [id number] Implanted:Qty: 1 on 03/07/2022 by Sawyer Orellana MD Left: Knee [employer] [id number] 07/30/2025 5551-G-320 -E / / [id number] Procedures Procedure Name Priority Date/Time Associated Diagnosis Comments ANNUAL BMP BLOOD TEST Routine 03/08/2022 from Last 3 Months or Most Recently Relevant to Health Maintenance Results * Annual BMP Blood Test (03/08/2022) Annual BMP Blood Test Abstracted us Historical Provider MD HEALTH MAINTENANCE Final Result from Last 3 Months or Most Recently Relevant to Health Maintenance Insurance MEDICARE [facility] Care Teams Picc Nurse Relationship Specialty Start Date End Date Armani Segundo MD [address] [place] [address] PCP - General Assisted Living Administrator 03/20/18
== END 2025-01-04 16:23 | disposition home or self-care (01) ==
LOC: HO.HUSH 12:45
PROVIDERS: PCP Internal Medicine; Visit Provider Urology
DX: R39.12 Poor urinary stream (principal); N30.10 Interstitial cystitis (chronic) without hematuria; R39.15 Urgency of urination
CPT/HCPCS: 99213; G2211